=== PATIENT | female | born 1995 | race Caucasian/White ===

== ENCOUNTER 2016-12-23 12:32 | Outpatient (CLI) | payer MEDICAID ==
[~2016-12-23] VITALS: Ht 157.5 cm; Wt 57.7 kg
[~2016-12-23 12:32] MED LIST: CALC600T5 PO; CYAN1TAB14 PO; IRON1TAB74 PO; PREN1TAB17 PO
[2016-12-23 12:50] VITALS: Ht 157.5 cm; Wt 57.7 kg
--- NOTE | 2016-12-23 14:32 | RADRPT ---
PROCEDURE: US OB. CLINICAL INDICATION: Premature rupture of membranes TECHNIQUE: Multiple sonographic images of the pelvis were obtained. The images were reviewed on a PACS workstation. COMPARISON: No prior studies are available for comparison. FINDINGS: There is a single live intrauterine . cardiac activity is identified at a rate of 14 6 beats per minute. presentation is cephalic. Placenta is bilobed grade 1. Biophysical profile score is as follows: Breathing 2 Movements 2 Tone 2 Fluid volume 2 Amniotic fluid index = 10.4 cm Total biophysical profile score = 8/8 IMPRESSION: Biophysical profile score = 8/8 RPTAT: HH .Oneil Jha MD, Date Time Electronically viewed and signed by .Oneil Jha MD, on 12/23/2016 14:31 .W/
--- NOTE | 2016-12-23 16:00 | CONS ---
Date/Time of Note Date/Time of Note DATE: 12/23/16 TIME: 15:53 Consultation Date/Type/Reason Admit Date/Time December 23, 2069 Triage consult This patient is a 21 years old 2 para 1. Who came to triage complaining of rupture of membranes and leaking fluid from vagina. Her due date is March 16, 2017 which makes her 28 weeks and 1 day today, on examination she is a well-nourished well developed lady Her ear nose throat appears to be normal no neck is normal no neck vein distention no thyromegaly no lymph node enlargement anywhere in the body chest is clear Abdomen: no significant contraction at this time heart tone is normal pelvic exam was not performed lower extremity is normal no edema knee-jerk reflexes normal her vital signs are basically within normal limit pressure 108/55 pulse 90 temperature 97.7. Nitrazine test was performed which was negative for rupture of membranes as as well as the ROM plus which was reported negative she had an ultrasound which reported a single live intrauterine cardiac activity is normal 146 bpm cephalic presentation placenta grade 1 her biophysical profile was reported 05/31 with an amniotic fluid index of 10.4 cm with these finding information given to the patient she will be discharged to be followed in her clinic Initial Consult Date Laboratory Tests Test 12/23/16 12:50 Membranes Rupture NEGATIVE 24 HR Interval Summary Constitutional: No chills, No diaphoresis, No disoriented, No febrile, No improved, No no complaints, No other, No poor po, No requiring IVF, No requiring O2 Detailed Summary Eyes: No discharge, No no complaints, No other, No pain, No redness, No visual change ENT: No bleeding, No congestion, No discharge, No dysphagia, No no complaints, No other, No pain, No sore throat Respiratory: No cough, No no complaints, No other, No pain, No pleuritic pain, No shortness of breath, No sputum, No wheezing Gastrointestinal: other (As we mentioned there is no evidence of rupture of movement membrane or leakage of fluid from vagina), No blood, No constipation, No decreased appetite, No diarrhea, No flatus, No nausea, No no complaints, No pain, No passing stool, No vomiting Genitourinary: No bleeding, No discharge, No dysuria, No flank pain, No hematuria, No no complaints, No other Musculoskeletal: No back pain, No bone/joint pain, No neck pain, No no complaints, No other, No restricted range of motion, No swelling Skin: No bruising, No erythema, No laceration, No no complaints, No other, No pruritis, No rash, No skin lesions Neurologic: other (Knee-jerk reflex is normal), No confusion, No dizziness, No focal-weakness, No headache, No no complaints , No seizure, No syncope Endocrine: No dry skin, No no complaints, No other, No polydypsia, No polyuria , No temp intolerance Exam/Review of Systems Results Results 24 hrs Laboratory Tests Test 12/23/16 12:50 Membranes Rupture NEGATIVE JOANNE DONAHUE MD Dec 23, 2016 16:00
== END 2016-12-23 15:55 | disposition home or self-care (01) ==
LOC: L-D 12:32 → OBT 12:32
PROVIDERS: ATTEND Obstetrics & Gynecology
DX: O26.893 Other specified pregnancy related conditions, third trimester (principal); Z3A.28 28 weeks gestation of pregnancy
CPT/HCPCS: 76818; 84112; Z7500; G0463

== ENCOUNTER 2017-03-17 16:22 | Outpatient (CLI) | payer MEDICAID ==
[~2017-03-17] VITALS: Ht 154.9 cm; Wt 60.8 kg
[2017-03-17 16:55] VITALS: BP 109/63; PULSE 87; RESP 18; Ht 154.9 cm; Wt 60.8 kg
--- NOTE | 2017-03-17 17:41 | RADRPT ---
PROCEDURE: US OB biophysical profile. CLINICAL INDICATION: evaluation TECHNIQUE: Multiple sonographic images of the pelvis were obtained. The images were reviewed on a PACS workstation. COMPARISON: Obstetrical ultrasound from 12/23/2016 FINDINGS: There is a single viable intrauterine gestation. Cardiac activity is present with 166 beats per min jomar. There is a vertex presentation. The placenta is posterior and fundal in location. There is no evidence of placental abruption. There is a normal amount of amniotic fluid with an MARINO = 10.9 cm. Biophysical profile: movement 2/2 tone 2/2. breathing 2/2 MARINO 2/2 Total 05/31 RPTAT: AA . IMPRESSION: Normal biophysical profile. Mildly elevated heart rate of 166 beats per minute. Physician Hemanth Date Time Electronically viewed and signed by Physician Hemanth on 03/17/2017 17:41 /
--- NOTE | 2017-05-12 18:37 | PN ---
Triage Information Date/Time 03/17/17 Weeks of Gestation UNKNOWN : 2 Para: 1 Assessment/Plan DECREASE MOVEMENTS PAIGE WAGGONER MD May 12, 2017 18:37
== END 2017-03-17 18:10 | disposition home or self-care (01) ==
LOC: OBT 16:22 → L-D 16:23 → OBT 18:10
PROVIDERS: ATTEND Obstetrics & Gynecology
DX: O36.8190 Decreased fetal movements, unspecified trimester, not applicable or unspecified (principal)
CPT/HCPCS: 76818; Z7500; G0463

== ENCOUNTER 2017-03-19 10:57 | Inpatient (IN) | payer MEDICAID ==
[~2017-03-19] VITALS: Ht 154.9 cm; Wt 61.0 kg
[~2017-03-19 10:57] MED LIST changes: -CYAN1TAB14 PO
[2017-03-19 12:23] VITALS: Ht 154.9 cm; Wt 61.0 kg
[2017-03-19 12:24] VITALS: BP 113/55; PULSE 100; RESP 20
--- NOTE | 2017-03-19 13:55 | RADRPT ---
PROCEDURE: OB ultrasound for biophysical profile CLINICAL INDICATION: Biophysical profile. . Post dates TECHNIQUE: Multiple sonographic images of the pelvis were obtained. Transabdominal views are obta ined. COMPARISON: 03/17/2017 FINDINGS: Single intrauterine gestation. Presentation: Cephalic. Placenta: Posterior No evidence of placental abruption. No evidence of placenta previa. breathing movement = 2/2 tone = 2/2 motion = 2/2 MARINO = 2/2 MARINO = 10.9 cm heart rate: 156 beats per minute IMPRESSION: Single intrauterine gestation. Biophysical profile 05/31 RPTAT: AADD .Gage Castro MD, MD Date Time Electronically viewed and signed by .Gage Castro MD, on 03/19/2017 13:55 .B/
[2017-03-19] MEDS ORDERED: METHYLERGONOVINE 0.2 MG INJ IM PRN (17:00)
[2017-03-19] MEDS ORDERED: LIDOCAINE 1% (MPF) 30 ML INJ INJ PRN (17:00)
[2017-03-19] MEDS ORDERED: OXYTOCIN 30 UNITS/LR 500 ML IV SCH ×3 (17:00)
[2017-03-19] MEDS ORDERED: OXYTOCIN 30 UNITS/LR 500 ML IV PRN (17:00)
[2017-03-19] MEDS ORDERED: CARBOPROST 250 MCG INJ IM PRN (17:00)
[2017-03-19] MEDS ORDERED: MISOPROSTOL 200 MCG TAB PR PRN (17:00)
[2017-03-19] MEDS ORDERED: IBUPROFEN 600 MG TAB PO PRN (17:00)
[2017-03-19] MEDS ORDERED: BUTORPHANOL 2 MG INJ IV PRN (17:00)
[2017-03-19 17:48] LABS: ADD SCAN DIFF NO
[2017-03-19] MEDS: LACTATED RINGER'S 1,000 ML IV SCH ×2 (17:48→23:51)
[2017-03-19 17:51] LABS: BASOPHIL # 0.1 10^3/ul (0.0-0.1); BASOPHILS % 0.6 % (0.0-2.0); EOSINOPHILS # 0.4 10^3/ul (0.0-0.5); EOSINOPHILS % 4.6 % (0.0-7.0); HEMATOCRIT 38.3 % (37.0-47.0); HEMOGLOBIN 12.5 g/dl (12.0-16.0); LYMPHOCYTES # 1.9 10^3/ul (0.8-2.9); LYMPHOCYTES % 22.2 % (15.0-51.0); MEAN CORPUSCULAR HEMOGLOBIN 32.1 pg (29.0-33.0); MEAN CORPUSCULAR HGB CONC 32.6 g/dl (32.0-37.0); MEAN CORPUSCULAR VOLUME 98.2 fl (82.0-101.0); MEAN PLATELET VOLUME 12.9 fl (7.4-10.4); MONOCYTE # 0.6 10^3/ul (0.3-0.9); MONOCYTES % 6.5 % (0.0-11.0); NEUTROPHIL # 5.6 10^3/ul (1.6-7.5); NEUTROPHILS % 65.3 % (39.0-77.0); PLATELET COUNT 238 10^3/UL (140-415); RED CELL DISTRIBUTION WIDTH 13.6 % (11.5-14.5); WHITE BLOOD COUNT 8.6 10^3/ul (4.8-10.8)
[2017-03-19] MEDS ORDERED: LACTATED RINGER'S 1,000 ML IV PRN (18:00)
[2017-03-19 18:08] LABS: INR 0.9; PROTIME 12.1 Sec (12.2-14.2); PT RATIO 0.9
[2017-03-20] MEDS ORDERED: ONDANSETRON 4 MG INJ IV ONE (01:30)
[2017-03-20] MEDS ORDERED: DIPHENHYDRAMINE 50 MG INJ IV PRN (01:30)
[2017-03-20] MEDS ORDERED: NALOXONE (0.4 MG/ML) INJ IV PRN (01:30)
[2017-03-20] MEDS ORDERED: morphine 2 MG INJ IV PRN ×2 (01:30)
[2017-03-20] MEDS ORDERED: LACTATED RINGER'S 1,000 ML IV ONE (01:30)
[2017-03-20] MEDS ORDERED: CITRIC ACID/NA CITRATE 30 ML CUP PO ONE (01:30)
[2017-03-20] MEDS ORDERED: FENTAnyl 2MCG/ML-ROPIV 0.2% 100 ML BAG EPI SCH (01:30)
[2017-03-20] MEDS ORDERED: KETOROLAC 30 MG INJ IV PRN (01:30)
[2017-03-20] MEDS ORDERED: ONDANSETRON 4 MG INJ IV PRN ×2 (01:30→10:00)
[2017-03-20] MEDS ORDERED: PROCHLORPERAZINE 10 MG INJ IV PRN (01:30)
[2017-03-20] MEDS ORDERED: FENTAnyl 2MCG/ML-ROPIV 0.2% 100 ML ONE (01:38)
[2017-03-20] MEDS: LACTATED RINGER'S 1,000 ML IV SCH (02:20)
--- NOTE | 2017-03-20 08:41 | LDN ---
Date/Time of Note Date/Time of Note DATE: 03/20/17 TIME: 08:38 Delivery Summary Normal spontaneous vaginal delivery of a baby girl from OA position shoulders delivered without any difficulty rest of the baby's body followed placenta spontaneous expulsion inspected complete blood loss 200 mL no peritoneal or vaginal laceration Weeks of Gestation 40 weeks and 4 days Placenta Delivered: Spontaneously Meconium: none Episiotomy: No Laceration repair: None Anesthesia type: Epidural Sponge & Needle done & correct: Yes All needle counts correct: Yes Any foreign bodies felt in the: No Problems: Infant Delivery Information Sex Infant Sex: female Apgars 1 Minute: 9 5 Minute: 9 Suctioning Nose & mouth suctioned at antwon: Yes Delee suction performed: No Umbilical Cord Umbilical cord with: 3 Vessels Cord presentations: no nuchal cord Cord Blood was obtained: Yes PAIGE WAGGONER MD March 20, 2017 08:41
--- NOTE | 2017-03-20 08:50 | HP ---
Date/Time of Note Date/Time of Note DATE: 03/20/17 TIME: 08:42 OB - History Hx of Present Free Text/Dictation 21 years old female 2 para 1 EDC March 16, 2017 admitted at 40 weeks and 4 days to [facility] in labor admitting pelvic exam cervix 1 cm dilated 30% effaced vertex is -2 station patient had irregular contraction mild required labor augmentation transferred to L&D expecting management for delivery this patient has been under the care of the [facility] and her has not been complicated with gestational diabetes -induced hypertension. Chief Complaint: Labor contractions Estimated Due Date: March 16, 2017 : 2 Para: 1 Care: Good Care Ultrasounds: Normal mid trimester US Obstetrical Complications: None Medical Complications: None Past Family/Social History * Past Medical, Surgical, Family and Obstetric Histories reviewed from chart. Rubella: immune RPR/VDRL: Negative GBS Status: Negative HBsAG: Negative OB Admission Exam Vital Signs Vital Signs Vital Signs Date Time Temp Pulse Resp B/P Pulse Ox O2 Delivery O2 Flow Rate FiO2 03/19/17 12:24 98.1 100 20 113/55 Room Air Physical Exam HEENT: WNL Heart: Rhythm Normal Lungs: Clear, Equal Abdomen: WNL Reflexes: Normal Cervical Dilatation: 1cm Effacement: Other () Station: -2 Membranes: Intact Heart Rate: 130's Accelerations: Accelerations Present Decelerations: No Decelerations Varibility: Moderate Contractions on Admission: 6-10 Minutes Apart Intensity: Moderate Last 72 hours Lab Results CBC & BMP 03/19/17 17:00 OB Assessment/Plan Reason for admission: other (Early labor) PAIGE WAGGONER MD March 20, 2017 08:50
[2017-03-20 09:50] VITALS: BP 116/72; PULSE 70; RESP 18
[2017-03-20] MEDS ORDERED: BENZOCAINE 20% 56 ML SPRAY TOP PRN (10:00)
[2017-03-20] MEDS ORDERED: OXYCODONE/ASPIRIN (4.88/325) TAB PO PRN ×2 (10:00)
[2017-03-20] MEDS ORDERED: LANOLIN 7 GM TUBE TOP PRN (10:00)
[2017-03-20] MEDS ORDERED: DIBUCAINE 1% 30 GM OINT PR PRN (10:00)
[2017-03-20] MEDS ORDERED: WITCH HAZEL/GLYCERIN PAD PR PRN (10:00)
[2017-03-20] MEDS ORDERED: ACETAMINOPHEN/CODEINE #3 TAB PO PRN ×2 (10:00)
[2017-03-20] MEDS ORDERED: ACETAMINOPHEN 325 MG TAB PO PRN (10:00)
[2017-03-20 10:21] VITALS: BP 117/83; PULSE 73; RESP 18
[2017-03-20] MEDS: IBUPROFEN 600 MG TAB PO SCH ×3 (11:11→23:57)
[2017-03-20 11:35] VITALS: BP 103/53; PULSE 76; RESP 18
[2017-03-20] MEDS ORDERED: METHYLERGONOVINE 0.2 MG INJ ONE (11:37)
[2017-03-20] MEDS: OXYTOCIN 30 UNITS/LR 500 ML IV SCH ×2 (11:39→17:28)
[2017-03-20] MEDS ORDERED: METHYLERGONOVINE 0.2 MG INJ IM ONE (12:00)
[2017-03-20 16:00] VITALS: BP 114/80; PULSE 80
[2017-03-20 18:14] LABS: ADD SCAN DIFF NO
[2017-03-20 18:17] LABS: BASOPHILS % 0.2 % (0.0-2.0); EOSINOPHILS # 0.5 10^3/ul (0.0-0.5); EOSINOPHILS % 2.8 % (0.0-7.0); HEMATOCRIT 29.3 % (37.0-47.0); HEMOGLOBIN 9.5 g/dl (12.0-16.0); LYMPHOCYTES # 2.2 10^3/ul (0.8-2.9); LYMPHOCYTES % 13.2 % (15.0-51.0); MEAN CORPUSCULAR HEMOGLOBIN 31.6 pg (29.0-33.0); MEAN CORPUSCULAR HGB CONC 32.4 g/dl (32.0-37.0); MEAN CORPUSCULAR VOLUME 97.3 fl (82.0-101.0); MEAN PLATELET VOLUME 12.1 fl (7.4-10.4); MONOCYTE # 1.1 10^3/ul (0.3-0.9); MONOCYTES % 6.7 % (0.0-11.0); NEUTROPHIL # 12.5 10^3/ul (1.6-7.5); NEUTROPHILS % 76.4 % (39.0-77.0); PLATELET COUNT 214 10^3/UL (140-415); RED BLOOD COUNT 3.01 10^6/ul (4.20-5.40); RED CELL DISTRIBUTION WIDTH 13.7 % (11.5-14.5); WHITE BLOOD COUNT 16.4 10^3/ul (4.8-10.8)
[2017-03-20] MEDS: SENNA/DOCUSATE NA (8.6MG/50MG) TAB PO SCH (21:44)
[2017-03-21 04:00] VITALS: BP 95/51; PULSE 83; RESP 20
[2017-03-21] MEDS: IBUPROFEN 600 MG TAB PO SCH ×4 (06:10→23:34)
[2017-03-21 07:19] LABS: ADD SCAN DIFF NO
[2017-03-21 07:27] LABS: BASOPHILS % 0.3 % (0.0-2.0); EOSINOPHILS # 0.8 10^3/ul (0.0-0.5); EOSINOPHILS % 6.8 % (0.0-7.0); HEMATOCRIT 26.2 % (37.0-47.0); HEMOGLOBIN 8.3 g/dl (12.0-16.0); LYMPHOCYTES # 2.7 10^3/ul (0.8-2.9); LYMPHOCYTES % 24.7 % (15.0-51.0); MEAN CORPUSCULAR HEMOGLOBIN 31.4 pg (29.0-33.0); MEAN CORPUSCULAR HGB CONC 31.7 g/dl (32.0-37.0); MEAN CORPUSCULAR VOLUME 99.2 fl (82.0-101.0); MEAN PLATELET VOLUME 12.4 fl (7.4-10.4); MONOCYTE # 0.6 10^3/ul (0.3-0.9); MONOCYTES % 5.4 % (0.0-11.0); NEUTROPHIL # 6.8 10^3/ul (1.6-7.5); PLATELET COUNT 186 10^3/UL (140-415); RED BLOOD COUNT 2.64 10^6/ul (4.20-5.40)
[2017-03-21 08:00] VITALS: BP 109/54; PULSE 83; RESP 19
[2017-03-21] MEDS: SENNA/DOCUSATE NA (8.6MG/50MG) TAB PO SCH ×2 (10:54→21:01)
--- NOTE | 2017-03-21 11:18 | OPPN ---
Date/Time of Note Date/Time of Note DATE: 03/21/17 TIME: 11:15 Anesthesia Follow up Anesthesia Follow up Last documented vital signs Vital Signs Date Time Temp Pulse Resp B/P Pulse Ox O2 Delivery O2 Flow Rate FiO2 03/21/17 08:00 98.0 83 19 109/54 Room Air Respiratory function: WNL Cardiovascular function: WNL Comments 21 yo F s/p 03/20/17 under epidural analgesia, tolerated epidural placement without complications, epidural was d/c'd by RN. Patient is VSS, A&Ox3, baby at bedside, epidural site c/d/i, no erythema, no tenderness to palpation, no exudates. Patient tolerating diet, denies pain, BUSTAMANTE, sensation intact, no PDPH symptoms. baby at bedside sleeping. DOYLE CERRATO MD March 21, 2017 11:18
--- NOTE | 2017-03-21 11:42 | PN ---
Date/Time of Note Date/Time of Note DATE: 03/21/17 TIME: 11:41 OB Subjective Subjective Subjective day 1 Afebrile vital signs stable abdomen soft uterus firm lochia normal extremity normal ambulation encouraged Laboratory Tests Test 03/20/17 18:10 03/21/17 06:45 White Blood Count 16.410^3/ul 11.010^3/ul Red Blood Count 3.0110^6/ul 2.6410^6/ul Hemoglobin 9.5g/dl 8.3g/dl Hematocrit 29.3% 26.2% Mean Corpuscular Volume 97.3fl 99.2fl Mean Corpuscular Hemoglobin 31.6pg 31.4pg Mean Corpuscular Hemoglobin Concent 32.4g/dl 31.7g/dl Red Cell Distribution Width 13.7% 14.0% Platelet Count 32523^3/UL 41308^3/UL Mean Platelet Volume 12.1fl 12.4fl Neutrophils % 76.4% 62.0% Lymphocytes % 13.2% 24.7% Monocytes % 6.7% 5.4% Eosinophils % 2.8% 6.8% Basophils % 0.2% 0.3% Nucleated Red Blood Cells % 0.0/100WBC 0.0/100WBC Neutrophils # 12.510^3/ul 6.810^3/ul Lymphocytes # 2.210^3/ul 2.710^3/ul Monocytes # 1.110^3/ul 0.610^3/ul Eosinophils # 0.510^3/ul 0.810^3/ul Basophils # 0.010^3/ul 0.010^3/ul Nucleated Red Blood Cells # 0.010^3/ul 0.010^3/ul Current Medications Medications (Trade) Dose Ordered Sig/Ophelia Route PRN Reason Start Time Stop Time Status Last Admin Dose Admin Lactated Ringer's 1,000 ml @ 125 mls/hr Q8H IV 03/19/17 16:58 03/20/17 09:57 DC 03/20/17 02:20 Oxytocin/Lactated Ringer's 500 ml @ 0 mls/hr TITRATE IV 03/19/17 17:00 03/20/17 09:57 DC 03/19/17 21:17 Butorphanol Tartrate (Stadol) 2 mg Q2H PRN IV PAIN 03/19/17 17:00 03/20/17 09:57 DC Lidocaine 30 ml 30 ml ONCE PRN INJ EPISIOTOMY/TEARING 03/19/17 17:00 03/20/17 09:57 DC Oxytocin/Lactated Ringer's 500 ml @ 125 mls/hr ONCE -MAY REPEAT X1 IV 03/19/17 17:00 03/20/17 09:57 DC 03/20/17 08:45 Oxytocin/Lactated Ringer's 500 ml @ 125 mls/hr ONCE IV 03/19/17 17:00 03/20/17 09:57 DC Ibuprofen 600 mg 600 mg ONCE PRN PO Mild Pain (Pain Score 1-3) 03/19/17 17:00 03/20/17 09:57 DC Lactated Ringer's 1,000 ml @ 2,000 mls/hr Q30M PRN IV PRE-EPIDURAL BOLUS 03/19/17 18:00 03/20/17 09:57 DC Oxytocin/Lactated Ringer's 500 ml @ 0 mls/hr ONCE PRN IV For Hemorrhage Management 03/19/17 17:00 03/20/17 09:57 DC Methylergonovine Maleate (Methergine) 0.2 mg ONCE PRN IM VAGINAL BLEEDING 03/19/17 17:00 03/20/17 09:57 DC Carboprost Tromethamine (Hemabate) 250 mcg ONCE PRN IM VAGINAL BLEEDING 03/19/17 17:00 03/20/17 09:57 DC Misoprostol (Cytotec) 1,000 mcg ONCE PRN TN VAGINAL BLEEDING 03/19/17 17:00 03/20/17 09:57 DC Naloxone HCl (Narcan) 0.1 mg Q2M PRN IV FOR RESP RATE 8 OR LESS 03/20/17 01:30 03/20/17 09:57 DC Ketorolac Tromethamine (Toradol) 30 mg Q6H PRN IV PAIN 03/20/17 01:30 03/20/17 09:57 DC Morphine Sulfate (morphine) 2 mg Q3H PRN IV PAIN LEVEL 1-5 03/20/17 01:30 03/20/17 09:57 DC Morphine Sulfate (morphine) 4 mg Q3H PRN IV PAIN LEVEL 6-10 03/20/17 01:30 03/20/17 09:57 DC Diphenhydramine HCl (Benadryl) 25 mg Q6H PRN IV ITCHING 03/20/17 01:30 03/20/17 09:57 DC Ondansetron HCl (Zofran Inj) 4 mg Q6H PRN IV NAUSEA AND/OR VOMITING 03/20/17 01:30 03/20/17 09:57 DC Prochlorperazine (Compazine Inj) 10 mg ONCE PRN IV NAUSEA AND/OR VOMITING 03/20/17 01:30 03/20/17 09:57 DC Fentanyl/ Ropivacaine 100 ml 100 ml EPIDURAL INFUSION EPI 03/20/17 01:30 03/20/17 09:57 DC Lactated Ringer's (Lr) 1,000 ml @ 1,000 mls/hr Q1H ONCE IV 03/20/17 01:30 03/20/17 02:29 DC Ondansetron HCl (Zofran Inj) 4 mg pre-procedure ONCE IV 03/20/17 01:30 03/20/17 01:48 DC Citric Acid/ Sodium Citrate 30 ml 30 ml pre-procedure ONCE PO 03/20/17 01:30 03/20/17 01:48 DC Fentanyl/ Ropivacaine 100 ml @ ud STK-MED ONCE .ROUTE 03/20/17 01:38 03/20/17 01:39 DC Oxytocin/Lactated Ringer's 500 ml @ 125 mls/hr Q4H IV 03/20/17 09:54 03/20/17 17:53 DC 03/20/17 17:28 Ibuprofen (Motrin) 600 mg Q6 PO 03/20/17 12:00 03/21/17 06:10 Acetaminophen (Tylenol Tab) 650 mg Q4H PRN PO PAIN LEVEL 1-5 03/20/17 10:00 Acetaminophen/ Codeine Phosphate (Tylenol No.3) 1 tab Q4H PRN PO PAIN LEVEL 1-5 03/20/17 10:00 Acetaminophen/ Codeine Phosphate (Tylenol No.3) 2 tab Q4H PRN PO PAIN LEVEL 6-10 03/20/17 10:00 Oxycodone/Aspirin (Percodan) 1 tab Q3H PRN PO PAIN LEVEL 1-5 03/20/17 10:00 Oxycodone/Aspirin (Percodan) 2 tab Q3H PRN PO PAIN LEVEL 6-10 03/20/17 10:00 Ondansetron HCl (Zofran Inj) 4 mg Q6H PRN IV NAUSEA AND/OR VOMITING 03/20/17 10:00 Senna/Docusate Sodium (Senokot-S) 1 tab BID PO 03/20/17 21:00 03/21/17 10:54 Witch Tia/ Glycerin (Tucks Pads) 1 pad BEDSIDE MEDICATION PRN TN HEMORRHOID/EPISIOTMY PAIN 03/20/17 10:00 03/20/17 11:12 Benzocaine (Dermoplast [place] [address]) 1 spray BEDSIDE MEDICATION PRN TOP HEMORRHOID/EPISIOTMY PAIN 03/20/17 10:00 03/20/17 11:11 Dibucaine (Nupercainal) 1 applic BEDSIDE MEDICATION PRN TN HEMORRHOID/EPISIOTMY PAIN 03/20/17 10:00 Lanolin (Dbl-S-Quynzj) 1 applic BEDSIDE MEDICATION PRN TOP BEDSIDE FOR SHIRLEY TO NIPPLES 03/20/17 10:00 Measles/Mumps/ Rubella Vaccine Live (Mmr Ii Vaccine) 0.5 ml ONCE ONCE SC* 03/22/17 09:00 03/22/17 09:01 Methylergonovine Maleate (Methergine) 0.2 mg STK-MED ONCE .ROUTE 03/20/17 11:37 03/20/17 11:38 DC Methylergonovine Maleate (Methergine) 0.2 mg ONCE ONCE IM 03/20/17 12:00 03/20/17 12:01 DC 03/20/17 11:43 PAIGE WAGGONER MD March 21, 2017 11:42
[2017-03-21 16:00] VITALS: BP 105/56; RESP 18
[2017-03-21 20:00] VITALS: BP 109/63; PULSE 84; RESP 18
[2017-03-22 05:19] VITALS: BP 94/69; PULSE 83; RESP 20
[2017-03-22] MEDS: IBUPROFEN 600 MG TAB PO SCH ×2 (06:23→12:25)
[2017-03-22 09:00] VITALS: BP 110/54; PULSE 80; RESP 18
[2017-03-22] MEDS ORDERED: MEASLES,MUMPS,RUBELLA VACCINE INJ SC* ONE (09:00)
--- NOTE | 2017-03-22 09:38 | PD.PPDC ---
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
[2017-03-22] MEDS: SENNA/DOCUSATE NA (8.6MG/50MG) TAB PO SCH (09:41)
--- NOTE | 2017-03-22 09:41 | DS ---
Date/Time of Note Date/Time of Note DATE: 03/22/17 TIME: 09:39 Discharge Summary Admission/Discharge Info Admit Date/Time March 19, 2017 at 16:15 Discharge Date/Time March 22, 2007 at 930 Final Diagnosis Day 2 post normal vaginal delivery Patient Condition: Good Procedures Normal spontaneous vaginal delivery Hx of Present Illness Term Hospital Course Uneventful satisfactory Home Meds Reported Medications Calcium Carbonate (CALCIUM) 600 Mg Tablet, 600 MG PO DAILY 04/24/13 Iron Bis-Gly/Fa/C/B12/Ca/Succ (IRON 21/7 TABLET) 1 Each Tablet, 1 EACH PO DAILY 04/24/13 Vit-Iron Fumarate-FA ( Tablet) 1 Each Tablet, 1 EACH PO DAILY 04/24/13 Discontinued Reported Medications Cyanocobalamin/Fa/Pyridoxine (FOLIC ACID 2.5 MG TABLET) 1 Each Tablet, 1 EACH PO DAILY 04/24/13 Follow-up Plan Appointment clinic in 2 weeks for check Primary Care Provider Care Physician No Primary Time spent on discharge: < 30 minutes PAIGE WAGGONER MD March 22, 2017 09:41
== END 2017-03-22 15:32 | disposition home or self-care (01) | DRG 775 ==
LOC: L-D 10:57 → OBT 10:57 → L-D 16:15 → PP1 03-20 09:51
PROVIDERS: ADMIT Obstetrics & Gynecology; ATTEND Obstetrics & Gynecology
PROC: 10E0XZZ Delivery of Products of Conception, External Approach (ICD-10-PCS; principal; 2017-03-20)
DX: O48.0 Post-term pregnancy (principal); Z37.0 Single live birth; Z3A.40 40 weeks gestation of pregnancy
CPT/HCPCS: 62319; 76818; 85025; 85610; 85730; 86592; 86900; 86901; 99464; G0463; J2210; J2590; J3010; J7120